=== PATIENT | male | born 1995 | race Caucasian/White ===

== ENCOUNTER 2021-03-14 08:58 | Day surgery (SDC) | payer OTHER ==
[~2021-03-14] VITALS: Ht 177.8 cm; Wt 79.7 kg
[2021-03-14] MEDS ORDERED: TUMS ULTRA ST1000 MG PO (09:36)
[2021-03-14 09:38] VITALS: BP 113/73; PULSE 61; TEMP 98
--- NOTE | 2021-03-14 09:47 | NUR ---
Patient became diaphoretic and pale after having IV started. Nauseated but no emesis. Chair reclined. Cool cloth on forehead. Spouse in room. Call light in reach.
[2021-03-14] MEDS ORDERED: PRILOSEC 20MG20 MG PO (10:26)
[2021-03-14 10:35] VITALS: BP 117/66; PULSE 70; TEMP 97.8
--- NOTE | 2021-03-14 10:35 | NUR ---
PATIENT TRANSPORTED PER CART FROM GI SUITE TO BAY 2 ACCOMPANIED BY ISABELA RN. PATIENT AMBULATED FROM CART TO CHAIR WITH SLOW STEADY GAIT WITH 2 ASSIST. MONIORS APPLIED. VSS ON ROOM AIR. IN ROOM. PATIENT TALKS WITH STAFF AND . VERBAL REPORT RECIEVED FROM ISABELA LAKHANI.
[2021-03-14 10:45] VITALS: BP 117/73; PULSE 55
--- NOTE | 2021-03-14 10:45 | NUR ---
VSS ON ROOM AIR. PATIENT DENIES DISCOMFORT AND NAUSEA. PATIENT TALKS WITH . DRINKS WATER WITHOUT PROBLEMS. DR BOO IN ROOM AND SPEAKS WITH PATIENT AND .
[2021-03-14 11:00] VITALS: BP 107/65; PULSE 58
--- NOTE | 2021-03-14 11:00 | NUR ---
VSS ON ROOM AIR. PATIENT TALKS WITH . EATS CRACKERS AND DRINKS WATER WITHOUT PROBLEMS. DENIES DISCOMFORT AND NAUSEA.
--- NOTE | 2021-03-14 11:11 | NUR ---
VSS ON ROOM AIR. IV DC'D PER PROTOL. DISCHARGE INSTRUCTIONS GIVEN VERBAL AND DISCHARGE PACKET PROVIDED. INFORMATION REVIEWED. QUESTIONS ANSWERED AND PATIENT AND VOICED UNDERSTANDING. PATIENT CHANGES INTO STREET CLOTHES.
[2021-03-14 11:15] VITALS: BP 101/67; PULSE 58
--- NOTE | 2021-03-14 11:20 | NUR ---
[facility]CHARG[facility] WHEEL [facility]
== END 2021-03-14 11:20 | disposition home or self-care (01) ==
LOC: SDCO 08:58
DX: K21.00 Gastro-esophageal reflux disease with esophagitis, without bleeding (principal); K29.31 Chronic superficial gastritis with bleeding; K29.80 Duodenitis without bleeding; Z20.822 Contact with and (suspected) exposure to COVID-19; K44.9 Diaphragmatic hernia without obstruction or gangrene
CPT/HCPCS: J2704; J7030